=== PATIENT | female | born 1990 | race Hispanic/Latino ===

== ENCOUNTER 2022-01-09 18:43 | Emergency (ER) | payer MEDICAID, OTHER ==
[~2022-01-09] VITALS: Ht 167.6 cm; Wt 65.0 kg
[2022-01-09 18:45] VITALS: BP 127/77
[2022-01-09 19:04] LABS: APPEARANCE,URINE Clear (CLEAR); BILIRUBIN,URINE Negative (NEGATIVE); COLOR,URINE Yellow (YELLOW); GLUCOSE, URINE (UA) Negative (NEGATIVE); KETONES,URINE Negative (NEGATIVE); LEUKOCYTE ESTERASE ,URINE Moderate (NEGATIVE); NITRATE,URINE Negative (NEGATIVE); OCCULT BLOOD,URINE Negative (NEGATIVE); PROTEIN,URINE Negative (NEGATIVE); UROBILINOGEN,URINE 0.2 mg/dL (0.2-1.0)
[2022-01-09 19:08] LABS: HCG,QUAL RESULT POSITIVE (NEGATIVE)
[2022-01-09 19:12] LABS: BASOPHILS % (AUTO) 0.3 % (0.0-5.0); EOSINOPHILS % (AUTO) 0.9 % (0.0-8.0); HEMATOCRIT 38.7 % (36-48); LYMPHOCYTES % (AUTO) 29.3 % (21.0-51.0); MEAN CORPUSCULAR HEMOGLOBIN 28.9 pg (27.0-33.0); MEAN CORPUSCULAR HGB CONC 33.3 g/dL (32.0-36.0); MEAN CORPUSCULAR VOLUME 86.8 fL (79-99); MONOCYTES % (AUTO) 7.4 % (3.0-13.0); NEUTROPHILS % (AUTO) 61.7 % (40.0-77.0); PLATELET COUNT (AUTO) 276 K/uL (130-400); RED BLOOD CELL COUNT(AUTO) 4.46 MIL/uL (4.00-5.50); RED CELL DISTRIBUTION WIDTH 13.6 % (11.0-15.5)
[2022-01-09 19:18] LABS: BACTERIA,URINE Few /HPF (None Seen); RBC,URINE 0-1 /HPF (0-1); SQUAMOUS EPITHELIAL CELL,UR Few /HPF (0-2)
[2022-01-09] MEDS ORDERED: LIDOCAINE HCL-MPF 1% 2ML VIAL ONE (19:28)
[2022-01-09] MEDS ORDERED: CEFTRIAXONE 1G VIAL IM ONE (19:30)
[2022-01-09 19:39] LABS: ALBUMIN 3.9 g/dL (3.5-5.0); BILIRUBIN,TOTAL 0.3 mg/dL (0.2-1.0); CREATININE 0.6 mg/dL (0.5-1.5); POTASSIUM 3.6 mmol/L (3.5-5.1); TOTAL PROTEIN, SERUM 8.2 g/dL (6.0-8.3)
[2022-01-09] MEDS ORDERED: CEPH500B PO (20:08)
[2022-01-09] MEDS ORDERED: PREN-61 PO (20:08)
== END 2022-01-09 20:23 | disposition home or self-care (01) ==
LOC: EDH 18:43
DX: O23.41 Unspecified infection of urinary tract in pregnancy, first trimester (principal); Z3A.09 9 weeks gestation of pregnancy
CPT/HCPCS: 36415; 76801; 80053; 81001; 81025; 84702; 85025; 87077; 87088; 87186; 96372; 99284; J0696; J3490

== ENCOUNTER 2025-04-19 08:58 | Emergency (ER) | payer SELFPAY ==
[~2025-04-19] VITALS: Ht 160 cm; Wt 80.7 kg
[~2025-04-19 08:58] MED LIST: CEPH500B PO; PREN-61 PO
--- NOTE | 2025-04-19 09:34 | ERN ---
General Chief Complaint: Abdominal Pain Stated Complaint: UMBILICAL HERNIA Time Seen by MD: 09:01 Source: patient History of Present Illness Initial Comments Patient is a 34-year-old female coming in to be evaluated for umbilical discomfort. Per patient she believes she has a an umbilical hernia that has been causing her some problems. She also states that the umbilical hernia went in now it hurts her. Allergies: Coded Allergies: ketorolac (Unverified Allergy, Unknown, 04/19/25) Home Meds Active Scripts Vit No.78/Iron/FA (Prenatabs FA Tablet) 1 Each Tablet, 1 EACH PO DAILY, #100 TAB Prov:DES JOHNSON 01/09/22 Cephalexin Monohydrate (Keflex) 500 Mg Cap, 500 MG PO TID for 7 Days, #21 CAP Prov:DES JOHNSON 01/09/22 Past Medical History Past Medical History: No Pertinent History Medical History Other: UMBILICAL HERNIA Past Surgical History: Family History Family History: Negative Social History Social History: Negative Female( History) LMP: Mar 29, 2025 ROS Dictation CONSTITUTIONAL: No chills, no fever, no weakness, no diaphoresis, no malaise. HEAD/FACE: No signs of trauma. EENT: No eye pain, no blurred vision, no tearing, no double vision, no ear pain, no ear discharge, no nose pain, no nasal congestion, no throat pain, no throat swelling, no mouth pain. RESPIRATORY: No cough, no orthopnea, no SOB, no stridor, no wheezing. CARDIOVASCULAR: No chest pain, no edema, no palpitations, no syncope. GASTROINTESTINAL/ABDOMINAL: abdominal pain, no constipation, no diarrhea, no nausea, no vomiting. GENITOURINARY: No abnormal discharge, no dysuria, no frequent urination, no hematuria. No complaints of pain in the genitals. MUSCULOSKELETAL: No back pain, no gout, no joint pain, no joint swelling, no muscle pain, no muscle stiffness, no neck pain. INTEGUMENTARY: No change in color, no change in hair/nails, no dryness, no lesion, no lumps, no rash. NEUROLOGICAL/PSYCH: No anxiety, not depressed, no emotional problem, no headache, no numbness, no pre-existing deficit, no history of seizures, no tremors, no weakness. HEMATOLOGIC/LYMPHATIC: Not anemic, no history of blood clots, no apparent bleeding, no bruising, glands not swollen. All Systems Negative, Except as Noted. Physical Exam Physical Exam Dictation VITAL SIGNS: Reviewed. GENERAL APPEARANCE: Alert, oriented x3, no acute distress, obese. HEAD AND FACE: Non-traumatic. EYES: PERRL, pink conjunctivas, eyelid no trauma, anterior chamber clear. EARS: Pinnas intact and no signs of trauma or erythema. Ear canals clear and no discharge. TMs no erythema. NOSE: No discharge, no bleeding. OROPHARYNX: Mouth normal, teeth no caries, tongue pink. Pharynx clear, no erythema. Tonsils no exudates, no abscesses noted. Mucous membrane moist. NECK: Supple, non-tender, no thyromegaly, no masses, no JVD, no bruits. BREAST: Deferred. CHEST: No tenderness, no crepitus, no paradoxical movement, no retractions. LUNGS: Clear, well-ventilated, symmetric, no rales, no wheezing, no rhonchi, no stridor, good breath sounds bilaterally. HEART: Regular rate, regular rhythm, no murmur, no gallops. VASCULAR: No peripheral edema. ABDOMEN: Soft, positive bowel sounds, nondistended, no guarding, nontender, no rebound, no masses no hepatomegaly, no splenomegaly, no Hernandes's sign, no hernias. RECTAL: Deferred. GENITAL: Deferred. NEUROLOGICAL: Normal speech, gross motor function intact, gross sensory function intact. MUSCULOSKELETAL: Neck nontender, full range of motion, back nontender, full range of motion. EXTREMITIES: Nontender, full range of motion. SKIN: Color pink, dry, no turgor, no rash, no lacerations, no abrasions, no contusions. LYMPHATICS: Deferred. Results Laboratory and Microbiology Labs Reviewed?: Yes EKG/XRAY/US/CT/MRI Ultrasound Comment Umbilical ultrasound-diastasis recti MDM MDM: Differential diagnosis: diastesis recti, umbilical hernia Rationale: Tests considered and ordered secondary to shared decision making include: Previous outside records reviewed: Old ER visits. Risk of complication and/or morbidity or mortality of patient management: None Medications-Per medication reconciliation Need for hospitalization: Patient does not meet criteria for hospitalization. Patient is a 34-year-old female coming in to be evaluated for abdominal discomfort. Ultrasound discovered no umbilical hernia. Diastasis recti on physical exam. Patient will be discharged in stable condition with a diagnosis of that has a diastesis recti I did advised him appropriate follow up with the PCP in days. ED Course Orders Procedure Category Date Status Time Us Abd Limited/Abd US 04/19/25 Taken Wall 09:04 Acetaminophen 500mg PHA 04/19/25 Complete Tab (Tylenol 500mg T 09:30 Current Medications Medications (Trade) Dose Ordered Sig/Sally Route PRN Reason Start Time Stop Time Status Last Admin Dose Admin Acetaminophen (TYLenol 500MG TAB) 1,000 mg ONCE ONCE PO 04/19/25 09:30 04/19/25 09:31 DC 04/19/25 09:20 Vital Signs Date Time Temp Pulse Resp B/P (MAP) Pulse Ox O2 Delivery O2 Flow Rate FiO2 04/19/25 09:14 98.2 77 17 128/80 99 Room Air* 0 21 04/19/25 08:59 98.1 76 16 124/74 100 Room Air 0 DX & DISP Disposition: Discharge Departure Impression: Primary Impression: Diastasis recti Condition: Stable Additional Instructions: FOLLOW-UP WITH PRIMARY CARE PROVIDER IN 1 TO 2 DAYS. TAKE MEDICATIONS DIRECTED HERE IN THE EMERGENCY ROOM. OKAY TO CONTINUE HOME MEDICATIONS UNLESS OTHERWISE DISCUSSED DURING YOUR VISIT IN THE EMERGENCY ROOM TODAY. RETURN TO YOUR NEAREST EMERGENCY ROOM IF SYMPTOMS WORSEN OR IF THERE IS NO IMPROVEMENT. CALL 911 IF YOU NEED IMMEDIATE ASSISTANCE. TAKE TYLENOL [id number] NEEDED AND IF NO CONTRAINDICATIONS ARE PRESENT. INCREASE ORAL HYDRATION. A WOUND CULTURE OR URINE CULTURE WAS ORDERED HERE IN THE EMERGENCY ROOM DEPARTMENT PLEASE FOLLOW-UP WITH PRIMARY CARE PROVIDER AND ADVISE THEM TO GET REPORTS FROM OUR FACILITY. IF YOU HAD ANY MARILYNN WRAP/SPLINTS THAT WERE APPLIED HERE, PLEASE DO NOT REMOVE THEM UNTIL YOU SEE YOUR PRIMARY CARE OR SPECIALTY. Referrals: Referrals: SELF,REFERRAL (PCP) SHASHANK VALDES MD Time of Disposition: 09:53 IVÁN FLORES MD Apr 19, 2025 09:34
[2025-04-19 10:06] VITALS: BP 112/78; PULSE 68; RESP 17; TEMP 98.5; O2SAT 99
--- NOTE | 2025-04-19 10:06 | NUR ---
DC PATIENT WAS DC'D BY DR FLORES I EXPLAINED TO PATIENT TO FOLLOW UP WITH PCP AND PROVIDED INFO BASED ON DIAGNOSIS, I ALSO ANSWERED ANY QUESTIONS THE PATIENT HAD, PATIENT AMBULATED OUT OF ED, NO COMPLICATIONS
--- NOTE | 2025-04-19 10:30 | HMCIMG ---
Examination: Ultrasound examination of the abdomen, limited Clinical history: Evaluate the umbilicus, umbilical pain Comparison: None Findings: Grayscale and color ultrasound images of the abdominal wall are submitted. No abdominal wall defect or hernia seen with Valsalva. Impression: No sonographic abnormality appreciated. If clinical concern persist recommend CT imaging for further evaluation. /Crystal
== END 2025-04-19 10:04 | disposition home or self-care (01) ==
LOC: EDH 08:58
DX: M62.08 Separation of muscle (nontraumatic), other site (principal); Z79.899 Other long term (current) drug therapy
CPT/HCPCS: 76705; 99284

== ENCOUNTER 2025-06-28 19:39 | Emergency (ER) | payer SELFPAY ==
[~2025-06-28] VITALS: Ht 152.4 cm; Wt 72.6 kg
--- NOTE | 2025-06-28 19:53 | ERN ---
ED Note History of Present Illness Stated Complaint: HEADACHE, DIZZINENSS Chief Complaint: Headache Time Seen by MD: 19:43 Dictation: PATIENT IS A 34-YEAR-OLD FEMALE COMING IN WITH TWO COMPLAINTS 1ST COMPLAINT IS SHE IS HAVING A FRONTAL AND SINUS HEADACHE SHE HAS HAD SINCE THE NO FEVER NO CHILLS NO NAUSEA VOMITING NO RASH. NO NECK PAIN. SHE HAS NOT TAKEN ANYTHING PRIOR TO ARRIVING TO THE HOSPITAL TODAY. SECOND COMPLAINT IS SHE STATES SHE TOOK SEVERAL HOME TEST AND THINKS SHE MIGHT BE WOULD LIKE ME TO VERIFY THAT SHE IS . SHE DENIES VAGINAL BLEEDING, CONTRACTIONS NO FLANK PAIN. PATIENT HAD DR. POWELL STATES SHE IS NOT CALLED HER FOR AN APPOINTMENT. Allergies: Coded Allergies: ketorolac (Unverified Allergy, Unknown, 04/19/25) Home Meds Active Scripts Vit No.78/Iron/FA (Prenatabs FA Tablet) 1 Each Tablet, 1 EACH PO DAILY, #100 TAB Prov:DES JOHNSON 01/09/22 Cephalexin Monohydrate (Keflex) 500 Mg Cap, 500 MG PO TID for 7 Days, #21 CAP Prov:DES JOHNSON 01/09/22 Past Medical History Past Medical History: Other Additional Past Medical Hx: UMBILICAL HERNIA Surgical History: Family History: Negative Social History: Negative LMP: Apr 30, 2025 : 2 Para: 1 RN Note Reviewed/Agreed w/PFSH: Yes Review of System Dictation CONSTITUTIONAL: NEGATIVE EXCEPT FOR HPI HEAD/FACE: NEGATIVE EXCEPT FOR HPI FRONTAL AND SINUS HEADACHE EENT: NEGATIVE EXCEPT FOR HPI RESPIRATORY: NEGATIVE EXCEPT FOR HPI GASTROINTESTINAL/ABDOMINAL: NEGATIVE EXCEPT FOR HPI GENITOURINARY: NEGATIVE EXCEPT FOR HPI MUSCULOSKELETAL: NEGATIVE EXCEPT FOR HPI INTEGUMENTARY: NEGATIVE EXCEPT FOR HPI NEUROLOGICAL/PSYCH: NEGATIVE EXCEPT FOR HPI HEMATOLOGIC/LYMPHATIC: NEGATIVE EXCEPT FOR HPI ALL SYSTEMS NEGATIVE, EXCEPT NOTED ABOVE. 13 POINT REVIEW OF SYSTEMS ASSESSED AND ALL NEGATIVE EXCEPT FOR ABOVE. Initial Vital Sign VS Vital Signs Date Time Temp Pulse Resp B/P (MAP) Pulse Ox O2 Delivery O2 Flow Rate FiO2 06/28/25 19:41 98.8 80 18 128/74 99 Room Air Physical Exam Dictation VITAL SIGNS REVIEWED GENERAL APPEARANCE: ALERT, ORIENTED X 3, NO ACUTE DISTRESS, WELL DEVELOPED, NOURISHED. HEAD AND FACE: NON-TRAUMATIC. EYES: PERRL, PINK CONJUNCTIVAS, EYELID NO TRAUMA, ANTERIOR CHAMBER WITH ARCUS SENILIS. EARS: PINNAS INTACT AND NO SIGNS OF TRAUMA OR ERYTHEMA EAR CANALS CLEAR AND NO DISCHARGE TM NO ERYTHEMA NOSE: NO DISCHARGE, NO BLEEDING. MILD FRONTAL AND ETHMOID SINUS TENDERNESS. OROPHARYNX: MOUTH NORMAL, TONGUE PINK, PHARYNX CLEAR,NO ERYTHEMA, TONSILS NO EXUDATES, NO ABSCESSES NOTED, MUCOUS MEMBRANE MOIST NECK: SUPPLE, NON-TENDER, NO THYROMEGALY, NO MASSES, NO JVD, NO BRUITS BREAST:DEFERRED CHEST:NO TENDERNESS, NO CREPITUS, NO PARADOXICAL MOVEMENT, NO RETRACTIONS LUNGS:CLEAR, WELL-VENTILATED, SYMMETRIC, NO RALES, NO WHEEZING, NO RHONCHI, NO STRIDOR, GOOD BREATH SOUNDS BILATERALLY HEART: REGULAR RATE, REGULAR RHYTHM, NO MURMUR, NO GALLOPS VASCULAR: NO PERIPHERAL EDEMA, ABDOMEN: SOFT, POSITIVE BOWEL SOUNDS, NONDISTENDED, NO GUARDING, NONTENDER, NO REBOUND, NO MASSES NO HEPATOMEGALY, NO SPLENOMEGALY, NO ESTRADA'S SIGN, NO HERNIAS. RECTAL: DEFERRED GENITAL: DEFERRED NEUROLOGICAL: NORMAL SPEECH, MOTOR FUNCTION INTACT, SENSORY FUNCTION INTACT MUSCULOSKELETAL: NECK NONTENDER, FULL RANGE OF MOTION, BACK NONTENDER, FULL RANGE OF MOTION, EXTREMITIES: NONTENDER, FULL RANGE OF MOTION SKIN: COLOR PINK, DRY, NO TURGOR, NO RASH, NO LACERATIONS, NO ABRASIONS, NO CO NTUSIONS. LYMPHATIC: DEFERRED Results (Laboratory/Radiology) Laboratory/Radiology Laboratory Tests Test 06/28/25 20:02 Serum Test, Qualitative POSITIVE (NEGATIVE) H Labs Reviewed?: Yes ED Course ED Course Orders Procedure Category Date Status Time Acetaminophen 500mg PHA 06/28/25 Complete Tab (Tylenol 500mg T 20:00 Testing, LAB 06/28/25 Complete Serum Hcg 19:51 Current Medications Medications (Trade) Dose Ordered Sig/Sally Route PRN Reason Start Time Stop Time Status Last Admin Dose Admin Acetaminophen (TYLenol 500MG TAB) 1,000 mg ONCE ONCE PO 06/28/25 20:00 06/28/25 20:01 DC 06/28/25 19:57 Vital Signs Date Time Temp Pulse Resp B/P (MAP) Pulse Ox O2 Delivery O2 Flow Rate FiO2 06/28/25 19:41 98.8 80 18 128/74 99 Room Air Medical Decision Making MDM MEDICAL DECISION-MAKING BASED ON ESTABLISHING AND TREATMENT FOR A SINUS HEADACHE. WAS CONFIRMED WITH A AN HCG SERUM PATIENT WAS TOLD SHE WAS TAKE TYLENOL ONLY FOR PAIN START VITAMINS [id number] AVOID ALCOHOL, TOBACCO NO [id number] MEDICATIONS EXCEPT TYLENOL UNTIL SHE SEES NEXT TUESDAY. DX & DISP Disposition: Discharge Departure Impression: Primary Impression: Sinus headache Additional Impression: Condition: Stable Additional Instructions: FOLLOW-UP WITH PRIMARY CARE PROVIDER IN 1 TO 2 DAYS. TAKE MEDICATIONS DIRECTED HERE IN THE EMERGENCY ROOM. OKAY TO CONTINUE HOME MEDICATIONS UNLESS OTHERWISE DISCUSSED DURING YOUR VISIT IN THE EMERGENCY ROOM TODAY. RETURN TO YOUR NEAREST EMERGENCY ROOM IF SYMPTOMS WORSEN OR IF THERE IS NO IMPROVEMENT. CALL 911 IF YOU NEED IMMEDIATE ASSISTANCE. TAKE TYLENOL [id number] NEEDED AND IF NO CONTRAINDICATIONS ARE PRESENT. INCREASE ORAL HYDRATION. A WOUND CULTURE OR URINE CULTURE WAS ORDERED HERE IN THE EMERGENCY ROOM DEPARTMENT PLEASE FOLLOW-UP WITH PRIMARY CARE PROVIDER AND ADVISE THEM TO GET REPEAT PORTS FROM OUR FACILITY. IF YOU HAD ANY MARILYNN WRAP/SPLINTS THAT WERE APPLIED HERE, PLEASE DO NOT REMOVE THEM UNTIL YOU SEE YOUR PRIMARY CARE OR SPECIALTY. TAKE TYLENOL ONLY FOR HEADACHE PAIN. INCREASE YOUR WATER INTAKE. BEGIN VITAMINS/[id number]. NO ALCOHOL, NO TOBACCO NO [id number] MEDICATIONS EXCEPT TYLENOL UNTIL CLEARED BY YOUR WHEEL ROLLER DOCTOR NEXT TUESDAY. Referrals: SELF,REFERRAL (PCP) Time of Disposition: 21:16 I have reviewed the case, and I agree with, Diagnosis and Plan DUNCAN LEBRON NP Jun 28, 2025 19:53
[2025-06-28 21:25] VITALS: BP 126/78; PULSE 79; RESP 18; TEMP 98.6; O2SAT 100
== END 2025-06-28 21:30 | disposition home or self-care (01) ==
LOC: EDH 19:39
DX: O26.891 Other specified pregnancy related conditions, first trimester (principal); R51.9 Headache, unspecified; Z3A.09 9 weeks gestation of pregnancy
CPT/HCPCS: 36415; 84703; 99283